=== PATIENT | male | born 1965 | race Caucasian/White ===

== ENCOUNTER 2021-11-20 00:01 | Day surgery (SDC) | payer OTHER, SELFPAY ==
[2021-11-06 12:52] VITALS: BMI 30.1
--- NOTE | 2021-11-19 11:45 | SUR.PREOP ---
1145 spoke with spouse Ariadna about her husbands prep and the mangesium citrate being recalled. Spouse said she would let her know to not take the magnesium citrate because of the recall. Spouse Ariadna voiced understanding.
--- NOTE | 2021-11-19 13:04 | P.PNAN_ITS ---
Anes - Initial Pre Proc Eval Procedure: Operation Date: 11/20/21 09:00 Proposed Procedures p Screening Colonoscopy - Sachin Frias MD Date/Time: 11/19/21 13:04 Surgeon: Sachin Frias MD Pre Op Diagnosis: neoplasm screening, family hx of colon ca Patient Data Age: 56 Gender: M Height: 1.8 m Weight: 98 kg Allergies Allergy/AdvReac Type Severity Reaction Status Date / Time No Known Allergies Allergy Unknown Verified 11/20/21 08:24 Home Medications Medication Instructions Recorded Confirmed Type sildenafil 100 mg tablet 100 mg PO DAILY PRN sexual 08/25/21 11/20/21 Rx activity #10 tabs ropinirole 0.5 mg tablet 0.5 mg PO DAILY #90 tabs 10/14/21 11/20/21 Rx rosuvastatin 20 mg tablet (Crestor) 20 mg PO DAILY #90 tabs 11/20/21 Rx Patient hx anesthesia problems: none Family hx anesthesia problems: none Results Review: All pre-operative results and documents have been reviewed as part of the pre- operative evaluation. [facility] Past Medical History Medical History (Updated 11/20/21 @ 08:32 by Sachin Frias MD) Dyslipidemia Erectile dysfunction Family history of colon cancer in father GERD (gastroesophageal reflux disease) Surgical History Surgical History Hx of colonoscopy 2015 Hx of tonsillectomy age 5 [place] teeth extracted Family History Family History Grandparent Diabetes mellitus Family history of Alzheimer's disease Father Carcinoma of colon Malignant neoplasm of prostate Family history of primary malignant neoplasm of liver Family history of malignant neoplasm of bone Family history of cardiovascular disease Social History Social History Smoking status: Never smoker Second hand tobacco smoke exposure: No Alcohol intake: current Drinks per week: 4 Alcohol use details: consumes 4 beers a week Substance use: never Substance use type: does not use Living arrangements: with family Spiritual care concerns: No Anes - Eval Final PreProcedure Day of Procedure 11/19/21 13:04 Patient weight: overweight Heart: regular rate and rhythm Lungs: clear to auscultation Airway: Mallampati scale class II Neurological: alert and oriented Last oral intake: >/= 8 hours ASA classification: II Emergent: no Anesthetic plan: proceed Anesthesia type and monitoring: general GIVS and standard monitoring Results Review: All pre-operative results and documents have been reviewed as part of the pre- operative evaluation. Informed Consent: The patient's anesthetic plan and its attendant risks and benefits were discussed with the patient/family/POA. Questions were solicited and answers provided to the satisfaction of the patient/family/POA.
[2021-11-20 08:26] VITALS: BP 140/97; PULSE 69; RESP 16; TEMP 36.4; O2SAT 98; BMI 29.5
--- NOTE | 2021-11-20 08:31 | PM.IMHP ---
H&P: HPI History of Present Illness Date/Time: 11/20/21 08:31 Chief Complaint: Family history of colon cancer. Narrative: This is a 56-year-old white male patient presents for neoplasia screening. Patient's family history is significant his father had colon cancer. Patient previously had screening colonoscopy 2014 that was unremarkable. Patient presents today for neoplasia screening. Patient's current weight appetite and bowel movements are normal. He denies abdominal pain. He has had no bleeding. Review of Systems Review of Systems: Review of systems noncontributory. [facility] Past Medical History Medical History (Updated 11/20/21 @ 08:32 by Sachin Frias MD) Dyslipidemia Erectile dysfunction Family history of colon cancer in father GERD (gastroesophageal reflux disease) Surgical History Surgical History Hx of colonoscopy 2014 Hx of tonsillectomy age 5 [place] teeth extracted Family History Family History Grandparent Diabetes mellitus Family history of Alzheimer's disease Father Carcinoma of colon Malignant neoplasm of prostate Family history of primary malignant neoplasm of liver Family history of malignant neoplasm of bone Family history of cardiovascular disease Social History Social History Smoking status: Never smoker Second hand tobacco smoke exposure: No Alcohol intake: current Drinks per week: 4 Alcohol use details: consumes 4 beers a week Substance use: never Substance use type: does not use Living arrangements: with family Spiritual care concerns: No Meds Home Medications and Allergies Home Medications Medication Instructions Recorded Confirmed Type sildenafil 100 mg tablet 100 mg PO DAILY PRN sexual 08/25/21 11/20/21 Rx activity #10 tabs ropinirole 0.5 mg tablet 0.5 mg PO DAILY #90 tabs 10/14/21 11/20/21 Rx rosuvastatin 20 mg tablet (Crestor) 20 mg PO DAILY #90 tabs 11/20/21 Rx Allergies Allergy/AdvReac Type Severity Reaction Status Date / Time No Known Allergies Allergy Unknown Verified 11/20/21 08:24 Vital Signs Vital Signs - 24 hr 11/20/21 08:26 Temperature 97.6 F Pulse Rate 69 Respiratory Rate 16 Blood Pressure 140/97 H Pulse Oximetry 98 Oxygen Delivery Room Air Exam Narrative: Physical exam reveals patient to be alert. Vital signs stable. HEENT exam is unremarkable. Patient is anicteric. Lungs are clear to auscultation and percussion. Heart is without murmur or extra sounds. Abdominal exam bowel sounds are present soft nontender with no organomegaly. Digital external rectal exam is normal. Assessment and Plan Assessment and plan (1) Family history of colon cancer in father: Code(s): Z80.0 - Family history of malignant neoplasm of digestive organs Status: Acute Assessment and Plan: Patient's father had colon cancer. For this reason screening colonoscopy suggested. Consider evaluation at 5 year intervals in the future.
[2021-11-20] MEDS: LACTATED RINGERS 1,000 ML 150 ML IV CONT (08:37)
[2021-11-20 10:14] VITALS: BP 118/84; PULSE 76; RESP 13; O2SAT 96
[2021-11-20 10:24] VITALS: BP 123/73; PULSE 85; RESP 19; O2SAT 97
[2021-11-20 10:34] VITALS: BP 130/91; PULSE 64; RESP 17; O2SAT 99
== END 2021-11-20 10:41 | disposition home or self-care (01) ==
PROVIDERS: PCP Family Medicine; Visit Provider Internal Medicine Gastroenterology
PROC: 0DJD8ZZ Inspection of Lower Intestinal Tract, Via Natural or Artificial Opening Endoscopic (ICD-10-PCS; CPT 45378; principal; 2021-11-20 09:00)
DX: Z12.11 Encounter for screening for malignant neoplasm of colon (principal); D12.3 Benign neoplasm of transverse colon; K64.8 Other hemorrhoids; K57.30 Diverticulosis of large intestine without perforation or abscess without bleeding; Z80.0 Family history of malignant neoplasm of digestive organs; E78.5 Hyperlipidemia, unspecified; K21.9 Gastro-esophageal reflux disease without esophagitis
CPT/HCPCS: 45385; 88305; J2704; J7120

== ENCOUNTER 2021-12-10 09:58 | Outpatient (CLI) | payer OTHER, SELFPAY ==
--- NOTE | 2021-12-10 11:00 | NEURO_ITS ---
Impression: # Complains of numbness of hands. # Moderate left Carpal Tunnel Syndrome. # Evolving right Carpal Tunnel Syndrome. # Bilateral ulnar neuropathy across the elbows. # Normal needle/EMG exam. Nerve Conduction Studies Anti Sensory Summary Table Stim Site NR Peak (ms) P-T Amp (?V) Site1 Site2 Delta-P (ms) Dist (cm) Deep (m/s) Left Median Anti Sensory (2-3nd Digit) Wrist 4.8 14.7 Wrist 2-3nd Digit 4.8 14.0 29 Wrist 5.3 11.8 Wrist 2-3nd Digit 4.8 14.0 29 Right Median Anti Sensory (2-3nd Digit) Wrist 3.8 23.7 Wrist 2-3nd Digit 3.8 14.0 37 Wrist 3.9 20.7 Wrist 2-3nd Digit 3.8 14.0 37 Left Radial Anti Sensory (Base 1st Digit) Wrist 2.3 14.8 Wrist Base 1st Digit 2.3 0.0 Right Radial Anti Sensory (Base 1st Digit) Wrist 2.4 16.4 Wrist Base 1st Digit 2.4 0.0 Left Ulnar Anti Sensory (5th Digit) Wrist 3.0 17.7 Wrist 5th Digit 3.0 14.0 47 Right Ulnar Anti Sensory (5th Digit) Wrist 3.8 73.7 Wrist 5th Digit 3.8 14.0 37 Motor Summary Table Stim Site NR Onset (ms) O-P Amp (mV) Site1 Site2 Delta-0 (ms) Dist (cm) Deep (m/s) Left Median Motor (Abd Poll Brev) Wrist 5.6 3.4 Elbow Wrist 5.6 30.0 54 Elbow 11.2 3.0 Right Median Motor (Abd Poll Brev) Wrist 4.0 5.0 Elbow Wrist 5.4 31.0 57 Elbow 9.4 5.0 Left Ulnar Motor (Abd Dig Minimi) Wrist 2.6 6.9 A Elbow Wrist 6.5 32.0 49 A Elbow 9.1 5.9 B Elbow Wrist 4.6 27.0 59 B Elbow 7.2 6.2 Right Ulnar Motor (Abd Dig Minimi) Wrist 2.3 6.6 A Elbow Wrist 6.1 32.0 52 A Elbow 8.4 5.5 B Elbow Wrist 4.0 24.0 60 B Elbow 6.3 5.7 F Wave Studies NR F-Lat (ms) L-R F-Lat (ms) Left Median (Mrkrs) (Abd Poll Brev) 34.46 2.01 Right Median (Mrkrs) (Abd Poll Brev) 32.44 2.01 Left Ulnar (Mrkrs) (Abd Dig Min) 32.89 0.21 Right Ulnar (Mrkrs) (Abd Dig Min) 32.68 0.21 EMG Side Muscle Nerve Root Ins Act Fibs Amp Dur Recrt Comment Right 1stDorInt Ulnar C8-T1 Nml Nml Nml Nml Nml Right Ext Indicis Radial (Post Int) C7-8 Nml Nml Nml Nml Nml Right Ext Digitorum Radial (Post Int) C7-8 Nml Nml Nml Nml Nml Right BrachioRad Radial C5-6 Nml Nml Nml Nml Nml Right PronatorTeres Median C6-7 Nml Nml Nml Nml Nml Right Abd Poll Brev Median C8-T1 Nml Nml Nml Nml Nml Left 1stDorInt Ulnar C8-T1 Nml Nml Nml Nml Nml Left Ext Indicis Radial (Post Int) C7-8 Nml Nml Nml Nml Nml Left Ext Digitorum Radial (Post Int) C7-8 Nml Nml Nml Nml Nml Left BrachioRad Radial C5-6 Nml Nml Nml Nml Nml Left PronatorTeres Median C6-7 Nml Nml Nml Nml Nml Left Abd Poll Brev Median C8-T1 Nml Nml Nml Nml Nml MTDD
== END 2021-12-10 09:59 | disposition home or self-care (01) ==
LOC: ANHNEURO 09:58
PROVIDERS: PCP Family Medicine; Visit Provider Family Medicine
DX: R20.0 Anesthesia of skin (principal); G56.03 Carpal tunnel syndrome, bilateral upper limbs; G56.23 Lesion of ulnar nerve, bilateral upper limbs
CPT/HCPCS: 95886; 95911

== ENCOUNTER → 2022-01-21 14:02 | Outpatient (CLI) | payer OTHER, SELFPAY ==
--- NOTE | ~2022-01-21 | US_ITS ---
EXAMINATION: US soft tissue UE LT DATE: 01/21/2022 14:17 INDICATION: Soft tissue mass with impingement on the median nerve TECHNIQUE: Multiple grayscale ultrasound images of the region of concern at the volar aspect of the l eft wrist were obtained. COMPARISON: None FINDINGS/IMPRESSION: Normal appearance to the tendons extending along the volar aspect of the wrist and carpus. No abnorma l masses or fluid collections identified at the region of concern. Reviewed, dictated and finalized at location A.
== END ==
PROVIDERS: PCP Family Medicine
DX: M25.832 Other specified joint disorders, left wrist (principal)
CPT/HCPCS: 76882

== ENCOUNTER 2022-04-23 00:22 | Day surgery (SDC) | payer OTHER, SELFPAY ==
[2022-04-14 09:38] VITALS: BMI 29.9
--- NOTE | 2022-04-14 09:43 | PC.NURSE ---
Report to the Outpatient Waiting Room, entrance under the green pavilion located off [facility], at time 1100 on date 04/23/22. Planned Procedure Time: 1200. Time changes happen often and if your time is changed the preop area will call you the afternoon before. - You and your visitor will be asked to self-screen and do not enter if you have any COVID symptoms. - Only one visitor is requested with a max of two and NO children visitors are allowed at this time. - The patient visitor may be requested to leave or wait in car when not with patient due to distancing restrictions. - A mask is REQUIRED within the hospital. Patients may have LIGHT BREAKFAST Take the following medications with a SIP of water the morning of surgery: PRESCRIBED Medications to discontinue per physician: N/A Date to take last dose: N/A Please no make-up, nail uzbek, hairspray, perfume, deodorant, or body powder the day of surgery. No jewelry (including any body piercings) or valuables the day of surgery, leave them at home. Please take a shower or bath the night before, or the morning of, surgery with an antibacterial soap. Wear comfortable, loose fitting clothing. - Jewelry must be removed prior to entering the operating room. Rings and piercings that are not removed may be cut off. - The hospital will not accept responsibility for valuables. - Please leave all valuables, including medications, at home the day of surgery. YOU MAY DRIVE YOURSELF HOME FROM THE HOSPITAL. Follow any additional instructions given to you from your surgeon. If you or anyone in your household have experienced Covid symptoms in the past week, please notify your surgeon or the nurse liaison at the phone number below for possible testing. Telephone instructions given to PT - MAYCO VIRGEN and asked if any additional questions and then verbalized understanding. Patient advised to call surgeon office or pre surgery nurse liaison [phone] if any additional questions.
[2022-04-23] VITALS (7 sets, daily range): BP systolic 157–187; BP diastolic 80–110; PULSE 63–74; RESP 16–18; TEMP 36.7; O2SAT 96–98
--- NOTE | 2022-04-23 07:13 | WPDHPUPDATE1 ---
History and Physical Update Update Date/Time: 04/23/22 07:13 History and Physical has been reviewed, including an updated exam of the patient. There are NO changes in the patient's condition. Risks, benefits, and alternatives have been discussed and questions answered. Patient agrees to proceed with procedure.
--- NOTE | 2022-04-23 14:16 | SUR.PREOP ---
1415- Updated pt about delay in Dr. Flo ruiz.
--- NOTE | 2022-04-23 15:18 | SUR.PREOP ---
1515- Updated pt on delay in Dr. Flo ruiz.
--- NOTE | 2022-04-23 16:52 | SUR.OPER ---
Patient under local anesthetic during procedure, vitals showed hypertensive reading upon preoperative assessment. Systolic readings intraoperatively were consistently in the 180s. See vital documentation for more details. Dr. Rossi notified. Patient states that he has been pre hypertensive for sometime and his primary care provider has been monitoring. This RN instructed patient to follow up with his primary care provider regarding today's vitals, patient verbalized understanding and importance of following up.
--- NOTE | 2022-04-23 17:04 | P.OP_ITS ---
Procedure Note - Detailed Date of Procedure 04/23/22 Pre-op Diagnosis left carpal tunnel syndrome Post-op Diagnosis Same Procedure Performed Left open carpal tunnel release Surgeon Antonino Ruby MD Anesthesia Local Description of Procedure The patient's left palm was marked in the holding area. He was then taken to the operating room where he was placed supine on the operating table. A time- out was held and confirmed. With that his blood pressure was approximately 180/100. The site was marked for the incision and locally infiltrated with 2 % lidocaine with epinephrine. The extremity was exsanguinated with an Esmarch bandage. The tourniquet was inflated to 250 mmHg and this worker satisfactorily. The incision was made as marked and dissection was carried through the subcutaneous tissue to the palmar aponeurosis. This was incised with a 15 blade, also dividing the flexor retinaculum. Under 3 point retraction the ligament was divided distally and then proximally for complete release. It appeared that a nerve traversed the area distally. This may have been the motor branch we do not know but was held out of the way as the division was completed. The skin was then closed with interrupted 4-0 nylon suture. The tourniquet was released after 10 minutes. Is discharge instructions wound care and follow-up and a prescription for hydrocodone 5/325 is were 6. Estimated Blood Loss 1 Tourniquet Time 1 Drains No Packing No Pathology None sent Complications No immediate complications Condition Stable Disposition Same day
== END 2022-04-23 17:15 | disposition home or self-care (01) ==
PROVIDERS: PCP Family Medicine; Visit Provider Plastic Surgery
PROC: (CPT 64721; principal; 2022-04-23 14:00)
DX: G56.02 Carpal tunnel syndrome, left upper limb (principal)
CPT/HCPCS: 64721; A9270

== ENCOUNTER 2022-09-12 05:50 | Emergency (ER) | payer OTHER, SELFPAY ==
[2022-09-12 05:55] VITALS: BP 178/95; PULSE 70; RESP 16; TEMP 36.4; O2SAT 97
[2022-09-12 06:05] VITALS: BP 169/110; PULSE 64; RESP 16; TEMP 36.4; O2SAT 93
--- NOTE | 2022-09-12 06:11 | PC.NURSE ---
Patient states he took his 's Atropine eye drops since Wednesday and since then the blurriness has gotten worse.
--- NOTE | 2022-09-12 06:53 | ED.EYEPROB ---
HPI - Eye Problem General Chief complaint: Eye Problems Stated complaint: right eye redness/swelling Time Seen by Provider: 09/12/22 05:52 History of Present Illness HPI Narrative: This is a 56-year-old male with no significant past medical history, who presents to the emergency department complaining of right eye irritation and blurred vision for the past 3 days. The patient states he noted mild redness and irritation of the right eye 3 days ago. He applied 1 drop of his 's atropine eyedrops in his right eye once a day for the past 3 days. Prior to using the eyedrops, he did not notice any change in vision, however after using the eyedrops he noticed blurry vision in the right eye. Related Data Home Medications Medication Instructions Recorded Confirmed coenzyme Q10 100 mg capsule (Co 100 mg PO DAILY 04/14/22 04/23/22 Q-10) Allergies Allergy/AdvReac Type Severity Reaction Status Date / Time No Known Allergies Allergy Unknown Verified 09/12/22 05:51 Review of Systems Review of Systems: CONSTITUTIONAL: Denies fever, chills, or sweats. EYES: Right eye redness, irritation and blurred vision denies discharge. ENT: Denies rhinorrhea, congestion, sore throat, or otalgia. CARDIOVASCULAR: Denies chest pain, palpitations, or edema. RESPIRATORY: Denies cough or dyspnea. GASTROINTESTINAL: Denies abdominal pain, nausea, vomiting, or diarrhea. MUSCULOSKELETAL: Denies back pain, joint pain, or myalgia. NEUROLOGIC: Denies headache, numbness, dizziness, or weakness. PSYCHIATRIC: Denies anxiety or depression. [facility] Past Medical History Medical History Dyslipidemia Erectile dysfunction Family history of colon cancer in father GERD (gastroesophageal reflux disease) Surgical History Surgical History Hx of colonoscopy 2014 Hx of tonsillectomy age 5 [place] teeth extracted Family History Family History Grandparent Diabetes mellitus Family history of Alzheimer's disease Father Carcinoma of colon Malignant neoplasm of prostate Family history of primary malignant neoplasm of liver Family history of malignant neoplasm of bone Family history of cardiovascular disease Social History Social History Smoking status: Former smoker Tobacco type: cigarettes Second hand tobacco smoke exposure: No Additional smoking assessment comments: MANY YEARS AGO Alcohol intake: current Drinks per week: 4 Alcohol use details: consumes 4 beers a week Substance use: never Substance use type: does not use Living arrangements: with family Spiritual care concerns: No Exam Narrative: GENERAL: Well-developed, well-nourished, and in no acute distress. HEAD: Normocephalic, atraumatic. EYES: PERRLA and EOMI. anisocoria with the right pupil dilated to 4 mm in the left pupil 2 mm. The left pupil is sluggishly reactive to light, the right pupil reacts appropriately to light. ENT: Nares clear, no rhinorrhea or epistaxis. Mucous membranes moist. Oropharynx without tonsillar hypertrophy exudate or other lesions. CHEST: Clear to auscultation. No respiratory distress. No wheezes rales or rhonchi HEART: Regular rate and rhythm. No murmur heard. Normal peripheral pulses. ABDOMEN: Soft, nontender, nondistended, normal active bowel sounds. SKIN: Warm, dry, no rash. NEURO: No focal deficits. Alert and oriented x3. Strength 5/5 in all extremities, sensation intact bilaterally, the patient ambulates without difficulty. Cranial nerves II through XII intact. No noted ataxia PSYCH: Normal mood and affect. Course Course Emergency Course: 06:38 - Visual acuity 20/40 OD, 20/20 OS and 20/20 OU. With the patient's contacts removed, intraocular pressures 20 mmHg in the right eye and 21 mmHg in the left
[2022-09-12 06:56] VITALS: BP 151/103; PULSE 66; RESP 14; TEMP 36.6; O2SAT 95
== END 2022-09-12 06:57 | disposition home or self-care (01) ==
PROVIDERS: Emergency Provider Preventive Medicine Aerospace Medicine; PCP Family Medicine
DX: H10.9 Unspecified conjunctivitis (principal); H57.04 Mydriasis; T44.3X5A Adverse effect of other parasympatholytics [anticholinergics and antimuscarinics] and spasmolytics, initial encounter; K21.9 Gastro-esophageal reflux disease without esophagitis; E78.5 Hyperlipidemia, unspecified
CPT/HCPCS: 99283

== ENCOUNTER → 2023-05-06 15:44 | Outpatient (CLI) | payer OTHER, SELFPAY ==
--- NOTE | ~2023-05-06 | XR_ITS ---
XR knee LT min 4V DATE: 05/06/2023 16:07 INDICATION: Anterior left knee pain for 3 days. No injury. TECHNIQUE: [place] view. Standing AP, PA and lateral views COMPARISON: None FINDINGS: There is prominent prepatellar soft tissue swelling. There is mild periarticular spurring of the patella. There is moderate loss of height of medial brett rtment joint space and slight periarticular spurring. Small suprapatellar knee joint effusion is suggested. No fracture, dislocation, periosteal reaction o r bone destruction. No radiopaque intra-articular loose body or chondrocalcinosis. IMPRESSION: Osteoarthritis, moderate at the medial compartment, mild at the patellofemoral compartmen t Small knee joint effusion is suggested Prepatellar soft tissue swelling Reviewed, dictated and finalized at location L. [employer] IMPRESSION: Osteoarthritis, moderate at the medial compartment, mild at the pat ellofemoral compartment Small knee joint effusion is suggested Prepatellar soft tissue swelling
== END ==
PROVIDERS: PCP Family Medicine; Visit Provider Family Medicine
DX: M17.12 Unilateral primary osteoarthritis, left knee (principal); M25.462 Effusion, left knee
CPT/HCPCS: 73564

== ENCOUNTER 2023-05-06 16:12 | Outpatient (CLI) | payer OTHER, SELFPAY ==
[2023-05-06 16:24] LABS: Basophils Absolute Auto 0.1 K/mm3 (0.0-0.1); Basophils Percent Auto 0.6 % (0.2-1.2); Eosinophils Absolute Auto 0.3 K/mm3 (0-0.3); Eosinophils Percent Auto 3.5 % (0-4.4); Hematocrit 46.2 % (42.0-52.0); Hemoglobin 14.6 g/dL (14.0-18.0); Immature Granulocyte Absolute 0.02 K/mm3 (0.00-0.031); Immature Granulocyte Percent A 0.2 % (0-0.5); Lymphocytes Absolute Auto 3.09 K/mm3 (0.9-3.2); Lymphocytes Percent Auto 31.8 % (18.3-44.2); Mean Corpuscular HGB Conc 31.6 g/dl (32-36); Mean Corpuscular Hemoglobin 28.6 pg (26-34); Mean Corpuscular Volume 90.4 fl (80-100); Mean Platelet Volume 9.4 fl (7.4-10.4); Monocytes Absolute Auto 0.7 K/mm3 (0.1-0.6); Monocytes Percent Auto 7.4 % (2.6-8.5); Neutrophils Absolute Auto 5.5 K/mm3 (1.3-6.7); Neutrophils Percent Auto 56.5 % (45.5-73.1); Platelet Count Result 265 k/mm3 (150-375); Red Blood Count 5.11 M/mm3 (4.6-6.20); Red Cell Distribution Width 13.1 % (11.5-14.5); White Blood Count 9.7 K/mm3 (4.5-10.0)
[2023-05-06 16:46] LABS: CRP 0.6 mg/dL (<1.0); Uric Acid 6.3 mg/dL (3.5-8.5)
[2023-05-06 18:38] LABS: Hemoglobin A1C 6.4 % (<5.7)
== END 2023-05-06 16:13 | disposition home or self-care (01) ==
LOC: ANHLAB 16:13
PROVIDERS: PCP Family Medicine; Visit Provider Family Medicine
DX: I10 Essential (primary) hypertension (principal); M25.462 Effusion, left knee; M25.562 Pain in left knee; R73.9 Hyperglycemia, unspecified
CPT/HCPCS: 36415; 83036; 84550; 85025; 86140